=== PATIENT | male | born 1960 | race Caucasian/White ===

== ENCOUNTER 2017-10-14 01:57 | Emergency (ER) | payer BC ==
[~2017-10-14] VITALS: Ht 175.3 cm; Wt 85.5 kg
[2017-10-14 02:21] LABS: HEMATOCRIT 40.2 % (38.0-50.0); HEMOGLOBIN 14.3 G/DL (12.5-16.6); MCH 29.9 PG (29.0-34.0); MCHC 35.6 G/DL (30.0-36.0); MCV 84.1 FL (86-99); PLATELET COUNT 267 K/uL (156-360); RBC DIS.WIDTH-CV 12.4 % (11.8-14.6); RED BLOOD COUNT 4.78 M/uL (4.00-5.50); WHITE BLOOD COUNT 8.5 K/uL (4.1-10.2)
[2017-10-14 02:32] LABS: APPEARANCE SL.HAZY ((CLEAR)); BILIRUBIN NEGATIVE; BLOOD MODERATE; COLOR YELLOW ((YELLOW)); GLUCOSE (STRIP) NEGATIVE; KETONES NEGATIVE; LEUKOCYTES NEGATIVE; NITRITE NEGATIVE; PROTEIN (STRIP) 30; SPECIFIC GRAVITY 1.024 (1.000-1.030); UROBILINOGEN 0.2 MG/DL (0.2-1.0)
[2017-10-14 02:37] LABS: BACTERIA NONE SEEN /HPF; EPITHELIAL CELLS RARE /HPF; MUCUS TRACE /LPF; RED BLOOD CELLS TNTC /HPF (0-5); UCUL ADDED? YES; WHITE BLOOD CELLS 0-5 /HPF (0-5)
[2017-10-14 02:40] LABS: AMPHETAMINE NEGATIVE (500 ng/mL); BARBITURATES NEGATIVE (200 ng/mL); BENZODIAZEPINES NEGATIVE (150 ng/mL); BUPRENORPHINE NEGATIVE (10 ng/mL); COCAINE NEGATIVE (150 ng/mL); METHADONE NEGATIVE (200 ng/mL); METHAMPHETAMINE NEGATIVE (500 ng/mL); OPIATES (MORPHINE) NEGATIVE (100 ng/mL); OXYCODONE NEGATIVE (100 ng/mL); PHENCYCLIDINE NEGATIVE (25 ng/mL); PROPOXYPHENE NEGATIVE (300 ng/mL); THC CANNABINOIDS NEGATIVE (50 ng/mL); TRICYCLIC ANTIDEPRESSANTS NEGATIVE (300 ng/mL)
[2017-10-14 02:54] LABS: ALBUMIN 4.3 g/dL (3.2-4.8); CHLORIDE 103 mEq/L (99-109); POTASSIUM 3.6 mEq/L (3.7-5.4); SODIUM 141 mEq/L (136-147)
[2017-10-14 02:57] LABS: GLUCOSE 148 mg/dL (70-99); TOTAL PROTEIN 6.6 g/dL (6.4-8.3)
[2017-10-14 02:58] LABS: TOTAL BILIRUBIN 0.4 mg/dL (0.0-1.0)
[2017-10-14 02:59] LABS: SERUM ETHYL ALCOHOL < 10 mg/dL
[2017-10-14 03:00] LABS: ALKALINE PHOSPHATASE 90 IU/L (3-129); GFR ESTIMATE (CALCULATED) > 59 mL/min/ (58.99-99999)
[2017-10-14 03:01] LABS: UREA NITROGEN (BUN) 16 mg/dL (9-23)
[2017-10-14 03:02] LABS: AST (GOT) 20 IU/L (2-34); DIRECT BILIRUBIN 0.2 mg/dL (0.0-0.3)
[2017-10-14 03:03] LABS: ALT (GPT) 33 IU/L (3-49)
[2017-10-14 03:04] LABS: LIPASE 20 U/L (1.0-51.0)
[2017-10-14] MEDS ORDERED: ZOFRAN4 MG PO (03:43)
[2017-10-14] MEDS ORDERED: FLOMAX0.4 MG PO (03:43)
[2017-10-14] MEDS ORDERED: NORCO 5/3251 TABLET PO (03:43)
[2017-10-14 04:43] VITALS: BP 144/89
== END 2017-10-14 04:44 | disposition home or self-care (01) ==
LOC: EME 01:57
PROVIDERS: Physician Assistant
DX: N13.2 Hydronephrosis with renal and ureteral calculous obstruction (principal); R11.2 Nausea with vomiting, unspecified; R31.9 Hematuria, unspecified; I10 Essential (primary) hypertension; E78.5 Hyperlipidemia, unspecified; Z87.891 Personal history of nicotine dependence
CPT/HCPCS: 74176; 80048; 80076; 81003; 83690; 85027; 87086; 99281; 99285; G0480; J1885; J2405; J7030